=== PATIENT | female | born 1985 | race Caucasian/White ===

== ENCOUNTER 2016-09-11 15:52 | Emergency (ER) | payer OTHER | END 2016-09-11 18:55 | disposition home or self-care (01) | LOC: ER 15:52 | DX: N12 Tubulo-interstitial nephritis, not specified as acute or chronic (principal); F41.9 Anxiety disorder, unspecified; F17.210 Nicotine dependence, cigarettes, uncomplicated | CPT/HCPCS: 36415; 96361; 96365; 96375; J0696 ==